=== PATIENT | male | born 1995 | race Caucasian/White ===

== ENCOUNTER 2018-12-27 05:49 | Emergency (ER) | payer SELFPAY ==
[~2018-12-27] VITALS: Ht 185.4 cm; Wt 67.5 kg
--- NOTE | 2018-12-27 06:06 | NUR ---
PT WAS OUT RUNNING THIS MORNING AND LOST HIS BALANCE AND FELL ONTO A TREE. PT WITH LARGE WOUND ON LEFT SIDE OF CHEEK. PROVIDED PT WITH GOWN, MONITORS APPLIED, SIDERAILS UP X2, CALL LIGHT WITHIN REACH
[2018-12-27 06:16] VITALS: BP 134/77
[2018-12-27] MEDS ORDERED: LIDOCAINE-MPF 1%, 5ML ONE (06:20)
[2018-12-27] MEDS ORDERED: LIDOCAINE-MPF 1%, 5ML INFIL ONE (06:30)
--- NOTE | 2018-12-27 06:45 | NUR ---
RECEIVED BEDSIDE REPORT FROM EMILIANO ADKINS.
--- NOTE | 2018-12-27 06:50 | NUR ---
REPORT GIVEN TO EMILIANO CHASE
[2018-12-27] MEDS ORDERED: NEOSPORIN OINT. PKT 1 PACKET ONE (07:20)
--- NOTE | 2018-12-27 07:37 | NUR ---
PT HESITANT TO LEAVE WITHOUT SPEAKING TO ER PHYSICIAN ABOUT PAIN MEDICATION. PA. Mckenzie BARBOZA HAS BEEN IN TO SPEAK WITH PT MULTIPLE TIMES ABOUT PAIN MEDICATION. NO NARCOTIC RX INDICATED, PT RX'D MELOXICAM REQUESTED. ER PHYSICIAN UNABLE TO COME TO BEDSIDE, HAS CONSULTED WITH NANDO BARBOZA, NARCOTIC RX DECLINED BY PHYSICIAN. SECURITY REQUESTED TO ESCORT PT FROM ED.
--- NOTE | 2018-12-27 07:37 | NUR ---
Patient/Caregiver given discharge instructions and they have confirmed that they understand the instructions. Patient ambulatory with steady gait. PT LEFT WITH ALL PERSONAL BELONGINGS.
--- NOTE | 2018-12-27 10:54 | NUR ---
PT RETURNED TO ED REQUESTING TO SPEAK WITH ED PHYSICIAN ABOUT PAIN MEDICATION. PHYSICIAN RE-ITERATED THAT PT WAS PRESCRIBED MELOXICAM FOR PAIN PT REQUESTED. PT REQUESTED "STROGER PAIN MEDICATIONS" "JUST A COUPLE DAYS WORTH", AND DR OCHOA EXPLAINED THAT NARCOTICS ARE NOT INDICATED FOR THIS TYPE OF INJURY. PT AGAIN STATED HE NEEDS MORE THAN MELOXICAM AND PHYSICIAN REFUSED. THIS RN STOOD UP TO OPEN [facility] FOR PT TO LEAVE; PT BECAME UPSET AND CALLED THIS RN A "CUNT" UPON LEAVING.
--- NOTE | 2018-12-27 10:54 | NUR ---
LATE ENTRY FOR 0710: PT STATES HE HAS A LAC ON HIS CHEEK. PT STATED "IS THERE ANY WAY THEY CAN GIVE ME A RX FOR MELOXICAM? THAT'S ALL. I JUST HAVE TO GO TO WORK." PT WAS EDUCATED TO SPEAK WITH PROVIDER.
--- NOTE | 2018-12-27 10:55 | NUR ---
LATE ENTRY FOR 729. IN TO D/C PT. PT REQUESTING TO SPEAK WITH PROVIDER REGARDING WANTING NORCO. THIS RN WAS EDUCATED PRIOR TO GOING IN TO D/C REGARDING PAIN MEDICATION REGIMEN AND PT WAS NOT GOING TO GET NARCOTIC. THIS RN IN TO D/C PT. PT REQUESTING NARCOTIC. THIS RN EXPLAINED WHAT PROVIDER RELAYED. PT STATED "I JUST WANT TO TALK TO HIM AGAIN." THIS RN LEFT TO GET PROVIDER. PROVIDER WENT IN TO SPEAK WITH PT.
== END 2018-12-27 07:39 | disposition home or self-care (01) ==
LOC: ED 07:33
DX: S01.412A Laceration without foreign body of left cheek and temporomandibular area, initial encounter (principal); W01.0XXA Fall on same level from slipping, tripping and stumbling without subsequent striking against object, initial encounter; Y93.89 Activity, other specified; Y92.488 Other paved roadways as the place of occurrence of the external cause; Y99.8 Other external cause status
CPT/HCPCS: 12052; 99284

== ENCOUNTER 2019-07-01 05:20 | Inpatient (IN) | payer BC ==
[~2019-07-01] VITALS: Ht 185.4 cm; Wt 72.5 kg
[2019-07-01] MEDS ORDERED: SODIUM CHLORIDE 0.9% 1,000ML IVBOLUS ONE ×4 (05:30→13:30)
--- NOTE | 2019-07-01 05:52 | NUR ---
Patient brought in by ems. Per report patient was found down at friends house, was found unconscious and was not breathing on his own. Per report friends started CPR and called EMS. EMS found patient saturating at 40%. Patient was bagged till SpO2 % >90%. Patient was given narcan en route and per report patient started having seizures. EMS reports they felt patient became decorticate en route. Patient was given 2mg versed for seizures. A nasophyrangeal airway was initiated. Also found was an empty bottle of xanax, filled initially on the 26 of June. Patient was transferred into bed, pupils not consistent with opiate overdose, pupils are dilated at 5-6mm. And respond sluggishly to light. Patient arouses to physical stimulation but requires multiple repeats to orient to situation. Patient still extremely lethargic but this RN has been able to titrate his oxygen down to 1L nasal cannula and patient removed his own NPA. Patient has been agreeable and following directions. Prime Minister to bedside, labs have been drawn. Patient reports being agreeable to provide a urine sample. Awaiting for ua.
[2019-07-01 06:08] LABS: MEAN CORPUSCULAR HGB CONC 33.2 g/dL (33.2-36.2); MEAN CORPUSCULAR VOLUME 90.2 fL (81-97); MEAN PLATELET VOLUME 7.5 fL (7.4-10.4); PLATELET COUNT 196 x10^3/uL (130-400); RED BLOOD COUNT 5.23 x10^6/uL (4.38-5.82); RED CELL DISTRIBUTION WIDTH 12.3 % (9.4-14.8)
--- NOTE | 2019-07-01 06:11 | NUR ---
health type technician at bedside, completing ordered chest xray. Patient improving, o2 titrated down to a half a liter per minute and pulsatile oxygen at 100%. Patient agreeable. Urine sample provided and xray complete. Awaiting results.
[2019-07-01 06:23] LABS: ALANINE AMINOTRANSFERASE 238 U/L (12-78); ANION GAP 9 mmol/L (5-15); CALCIUM 8.3 mg/dL (8.5-10.1); CHLORIDE 99 mmol/L (98-107); CREATININE 1.67 mg/dL (0.7-1.3)
[2019-07-01 06:32] LABS: ALKALINE PHOSPHATASE 87 U/L (45-117); BILIRUBIN,TOTAL 0.4 mg/dL (0.2-1.0); TOTAL PROTEIN 7.6 g/dL (6.4-8.2)
[2019-07-01 06:33] LABS: AMPHETAMINE SCREEN, URINE Negative (Negative); BARBITURATE SCREEN, URINE Negative (Negative); BENZODIAZEPINE SCREEN, URINE Positive (Negative); CANNABINOID SCREEN, URINE Positive (Negative); COCAINE SCREEN, URINE Positive (Negative); METHADONE SCREEN, URINE Negative (Negative); OPIATE SCREEN, URINE Negative (Negative)
[2019-07-01 06:35] LABS: SALICYLATE LEVEL < 1.7 mg/dL (2.8-20.0)
[2019-07-01 06:42] LABS: BASOPHILS # (AUTO) 0.01 x10^3/uL (0-0.1); BASOPHILS % (AUTO) 0 % (0-1); EOSINOPHILS # (AUTO) 0.05 x10^3/uL (0-0.4); EOSINOPHILS % (AUTO) 0 % (1-7); LYMPHOCYTES % (AUTO) 3 % (22-44); MD SCAN; MONOCYTES % (AUTO) 2 % (2-9); NEUTROPHILS # (AUTO) 16.66 x10^3/uL (1.8-6.8); NEUTROPHILS % (AUTO) 95 % (42-75)
--- NOTE | 2019-07-01 06:55 | NUR ---
Gave report to diurnal RN's. Covered patients present complaint, interventions performed andplan of care.
--- NOTE | 2019-07-01 07:00 | NUR ---
REPORT RECEIVED FROM CARO CUMMINGS. ASSUMING CARE OF PATIENT AT THIS TIME.
--- NOTE | 2019-07-01 07:22 | NUR ---
PATIENTS BP 85/36 WHEN SLEEPING. 91/45 AFTER AROUSAL. TEMP 95.3 ORAL. NOTIFIED. ANOTHER 1L NS BOLUS STARTED PER PROVIDER ORDER. WILL CONTINUE TO MONITOR.
--- NOTE | 2019-07-01 08:13 | NUR ---
MAP PERSISTENTLY >60. PATIENT IS NOW ON 4L OXY MASK TO MAINTAIN SPO2 >90%. DR. HERMOSILLO NOTIFIED. 3RD BOLUS OF 1L NS STARTED. EKG IN PROGRESS. WILL CONTINUE TO MONITOR. Addendum: 07/01/19 at 0918 by CBRUCIAGA MAP PERSISTENTLY <60
--- NOTE | 2019-07-01 08:24 | NUR ---
SECOND EKG PERFORMED AND GIVEN TO DR. HERMOSILLO. WATER PROVIDED TO PATIENT APPROVED BY DR. HERMOSILLO. PATIENT WOKE UP DURING EKG AND IS MORE ALERT NOW AND WILL AWAKEN TO VOICE/LIGHT TOUCH. BP 118/50 NOW.
--- NOTE | 2019-07-01 08:56 | NUR ---
PATIENT SLEEPING ON GURNEY. CHEST RISE AND FALL OBSERVED. VS STABLE.
[2019-07-01] MEDS ORDERED: ONDANSETRON 2MG/ML, 2ML ONE (11:11)
--- NOTE | 2019-07-01 11:17 | NUR ---
PATIENT VOMITED 400 CC EMESIS. GIVEN ZOFRAN PER PROVIDER ORDER.
--- NOTE | 2019-07-01 11:27 | NUR ---
PATIENT IS AWAKE AND ORIENTED. CONVERSING WITH STAFF. ASKING QUESTIONS ABOUT EVENTS THAT BROUGHT HIM HERE. GIVEN APPLE JUICE AND WATER UPON REQUEST.
[2019-07-01] MEDS ORDERED: ONDANSETRON 2MG/ML, 2ML IVPush ONE (11:30)
--- NOTE | 2019-07-01 12:35 | NUR ---
WHILE PATIENT SLEEPING O2 SAT DROPPED TO 85% ROOM AIR. PUT ON 4L OXYMASK NOW 96%. BP 86/40. WILL NOTIFY DR. HERMOSILLO.
[2019-07-01] MEDS ORDERED: ALPR1TAB10 SL (12:57)
[2019-07-01] MEDS ORDERED: NS + 20MEQ KCL 1,000 ML IV SCH (13:10)
[2019-07-01] MEDS ORDERED: NS + 20MEQ KCL 1,000 ML IV ONE (13:23)
[2019-07-01] MEDS ORDERED: IBUPROFEN 600 MG TABLET ONE (13:29)
[2019-07-01] MEDS ORDERED: hydrALAzine 20 MG/ML, 1ML IVPush PRN (13:30)
[2019-07-01] MEDS ORDERED: IBUPROFEN 600 MG TABLET PO PRN (13:30)
[2019-07-01] MEDS ORDERED: DEXTROSE 50%, 50ML SYRINGE IVPush PRN (13:30)
[2019-07-01] MEDS ORDERED: GLUCAGON 1 MG IM PRN (13:30)
[2019-07-01] MEDS ORDERED: DEXTROSE 4 GM TAB.CHEW PO PRN (13:30)
--- NOTE | 2019-07-01 14:04 | NUR ---
BREAK RN: PT USING URINE, VERBALIZED NO NEEDS AT THIS TIME. IVF INFUSING WELL.
--- NOTE | 2019-07-01 14:25 | NUR ---
REPORT GIVEN TO SHAILESH CUMMINGS.
--- NOTE | 2019-07-01 14:45 | NUR ---
PATIENT TRANSFERED ON GURNEY TO FLOOR WITH 20 MEQ IN 1000 NS STILL INFUSING.
[2019-07-01 15:06] VITALS: BP 104/65
[2019-07-01] MEDS: INSULIN LISPRO 100 UNITS/ML, PEN SQ-INSULIN SCH ×2 (15:49→21:00)
[2019-07-01] MEDS: HEPARIN 5,000 UNITS/ML, 1ML SQ SCH ×2 (16:00→22:24)
[2019-07-01 21:30] VITALS: BP 124/70
[2019-07-01] MEDS: SODIUM CHLORIDE FLUSH 10ML SYR IVF SCH (22:24)
[2019-07-01] MEDS: SODIUM CHLORIDE 0.9% 1,000 ML IV SCH (22:24)
[2019-07-02 01:59] VITALS: BP 133/88
[2019-07-02] MEDS: SODIUM CHLORIDE 0.9% 1,000 ML IV SCH (05:32)
[2019-07-02 06:26] LABS: CALCIUM 8.3 mg/dL (8.5-10.1); CHLORIDE 112 mmol/L (98-107); CREATININE 1.13 mg/dL (0.7-1.3)
[2019-07-02 06:43] LABS: HEMOGRAM NOTE RECHECKED; MEAN CORPUSCULAR HEMOGLOBIN 29.8 pg (27.5-34.5); MEAN CORPUSCULAR HGB CONC 33.2 g/dL (33.2-36.2); MEAN CORPUSCULAR VOLUME 89.7 fL (81-97); MEAN PLATELET VOLUME 7.3 fL (7.4-10.4); PLATELET COUNT 172 x10^3/uL (130-400); RED BLOOD COUNT 4.36 x10^6/uL (4.38-5.82); RED CELL DISTRIBUTION WIDTH 12.1 % (9.4-14.8)
[2019-07-02 06:57] LABS: ANION GAP 5 mmol/L (5-15)
[2019-07-02] MEDS: INSULIN LISPRO 100 UNITS/ML, PEN SQ-INSULIN SCH ×2 (07:00→11:00)
[2019-07-02 07:40] LABS: BASOPHILS # (AUTO) 0.02 x10^3/uL (0-0.1); BASOPHILS % (AUTO) 0 % (0-1); EOSINOPHILS # (AUTO) 0.17 x10^3/uL (0-0.4); EOSINOPHILS % (AUTO) 3 % (1-7); LYMPHOCYTES % (AUTO) 34 % (22-44); MD SCAN; MONOCYTES # (AUTO) 0.61 x10^3/uL (0.2-0.8); MONOCYTES % (AUTO) 10 % (2-9); NEUTROPHILS # (AUTO) 3.09 x10^3/uL (1.8-6.8); NEUTROPHILS % (AUTO) 52 % (42-75)
[2019-07-02] MEDS: HEPARIN 5,000 UNITS/ML, 1ML SQ SCH (07:59)
[2019-07-02 08:36] VITALS: BP 100/72
[2019-07-02 08:37] LABS: MICROSCOPIC NOT IND
[2019-07-02] MEDS: SODIUM CHLORIDE FLUSH 10ML SYR IVF SCH (09:00)
[2019-07-02 09:20] LABS: CULTURE INDICATED? NO
== END 2019-07-02 14:13 | disposition home or self-care (01) | DRG 917 ==
LOC: ED 11:40 → EDIP 12:53 → 4WST 14:48 → DCLOUNGE 07-02 14:08
PROVIDERS: ADMIT Hospitalist; ATTEND Hospitalist
DX: T50.901A Poisoning by unspecified drugs, medicaments and biological substances, accidental (unintentional), initial encounter (principal); N17.0 Acute kidney failure with tubular necrosis; I46.9 Cardiac arrest, cause unspecified; J96.01 Acute respiratory failure with hypoxia; G40.89 Other seizures; R65.10 Systemic inflammatory response syndrome (SIRS) of non-infectious origin without acute organ dysfunction; F14.10 Cocaine abuse, uncomplicated; I10 Essential (primary) hypertension; J40 Bronchitis, not specified as acute or chronic; Y92.89 Other specified places as the place of occurrence of the external cause
CPT/HCPCS: 36415; 71045; 80048; 80053; 80074; 80307; 81003; 82550; 82962; 85025; 93005; 99285; G0378; J2405; J3480; J7030

== ENCOUNTER 2020-03-02 10:33 | Emergency (ER) | payer SELFPAY ==
[~2020-03-02] VITALS: Ht 188 cm; Wt 72.9 kg
[~2020-03-02 10:33] MED LIST: ALPR1TAB10 SL
[2020-03-02 10:36] VITALS: BP 149/77
[2020-03-02] MEDS ORDERED: DIPH,PERTUSS(ACELL),TET VAC/PF 0.5 ML IM-VACC ONE ×2 (10:57→11:00)
[2020-03-02] MEDS ORDERED: LIDOCAINE-MPF 1%, 2ML ONE (10:57)
[2020-03-02] MEDS ORDERED: LIDOCAINE-MPF 1%, 5ML INFIL ONE (11:00)
[2020-03-02] MEDS ORDERED: NEOSPORIN OINT. PKT 1 PACKET ONE (11:35)
--- NOTE | 2020-03-02 11:49 | NUR ---
Patient given discharge instructions and they have confirmed that they understand the instructions. Patient ambulatory with steady gait.
== END 2020-03-02 11:50 | disposition home or self-care (01) ==
LOC: ED 10:58
DX: S81.812A Laceration without foreign body, left lower leg, initial encounter (principal); X58.XXXA Exposure to other specified factors, initial encounter; Y93.89 Activity, other specified; Y92.89 Other specified places as the place of occurrence of the external cause; Y99.8 Other external cause status
CPT/HCPCS: 12032; 90471; 90715; 99284